=== PATIENT | female | born 1960 | race African-American/Black ===

== ENCOUNTER → 2020-08-03 13:08 | Outpatient (BNVA) | payer MEDICAID, SELFPAY | PROVIDERS: PCP Internal Medicine Geriatric Medicine; Referring Provider Internal Medicine Geriatric Medicine; Visit Provider Nurse Practitioner | DX: R10.32 Left lower quadrant pain (principal); R63.4 Abnormal weight loss; Z80.0 Family history of malignant neoplasm of digestive organs | CPT/HCPCS: 99212 ==

== ENCOUNTER 2020-08-27 09:44 | Outpatient (REF) | payer MEDICAID, SELFPAY ==
[2020-08-27 10:37] LABS: MANUAL DIFF FLAG NO
[2020-08-27 10:41] LABS: Basophils Percent Auto 0.2 % (0-2); Eosinophils Absolute Auto 0.1 X10*3/uL (0.0-0.4); Eosinophils Percent Auto 1.1 % (0-4); Hematocrit 36.3 % (37-47); Hemoglobin 11.5 g/dl (12.0-16.0); Imm Gran Abs Auto 0.03 X10*3/uL (0.00-0.03); Imm Gran Pct Auto 0.5 % (0.0-0.4); Lymphocytes Absolute Auto 1.9 X10*3/uL (1.2-4.9); Lymphocytes Percent Auto 34.3 % (20-40); Mean Corpuscular HGB Conc 31.7 g/dl (31.0-35.0); Mean Corpuscular Hemoglobin 25.8 pg (27.0-33.0); Mean Corpuscular Volume 81.4 fL (80-98); Mean Platelet Volume 10.1 fL (9.4-12.3); Monocytes Absolute Auto 0.4 X10*3/uL (0.1-1.2); Monocytes Percent Auto 7.9 % (2-11); Neutrophils Absolute Auto 3.1 X10*3/uL (2.0-8.3); Platelet Count 274 X10*3/uL (160-400); Red Blood Count 4.46 X10*6/uL (4.20-5.50); Red Cell Distribution Width 13.5 % (11.0-16.0); White Blood Count 5.6 X10*3/uL (4.8-10.8)
[2020-08-27 11:15] LABS: Alanine Aminotransferase 12 U/L (0-31); Albumin Level 4.3 g/dL (3.5-5.0); Alkaline Phosphatase 53 U/L (39-117); Anion Gap 10 (12-20); Aspartate Amino Transferase 15 U/L (5-31); Bilirubin Total 0.6 mg/dL (0.0-1.0); Blood Urea Nitrogen 13 mg/dL (9-16); Calcium 8.9 mg/dL (8.4-10.2); Carbon Dioxide 28 mmol/L (22-29); Chloride 105 mmol/L (96-108); Estimated Glomerular Filt Rate > 60; Glucose Random 84 mg/dL (60-115); Sodium 139 mmol/L (135-145); Total Protein 6.8 g/dL (6.5-8.0)
[2020-08-27 11:36] LABS: TSH reflex Free T4 1.41 mIU/mL (0.32-4.0)
== END 2020-08-27 09:45 | disposition home or self-care (01) ==
LOC: HO.LAB 09:44
PROVIDERS: PCP Internal Medicine Geriatric Medicine; Visit Provider Nurse Practitioner
DX: R10.32 Left lower quadrant pain (principal); R63.4 Abnormal weight loss
CPT/HCPCS: 36415; 80053; 84443; 85025

== ENCOUNTER 2020-08-29 | Outpatient (REF) | payer MEDICAID, SELFPAY | END 2020-08-29 00:01 | disposition home or self-care (01) | LOC: HO.LNP | PROVIDERS: Visit Provider Nurse Practitioner | DX: R10.32 Left lower quadrant pain (principal) | CPT/HCPCS: 87338 ==

== ENCOUNTER 2020-09-06 08:47 | Outpatient (REF) | payer MEDICAID, SELFPAY ==
--- NOTE | 2020-09-06 08:50 | CT_ITS ---
EXAMINATION: CT ABDOMEN AND PELVIS WITH CONTRAST CLINICAL INFORMATION: Left lower quadrant pain. COMPARISON: None TECHNIQUE: Multidetector volumetric images were obtained from the superior aspect of the liver through the pubic symphysis following administration of oral and 85 mL of Omnipaque 350 intravenous contrast. Sagittal and coronal reformatted images were obtained on the technologist's workstation. Oral contrast: No This CT examination was performed using dose optimization techniques as appropriate, variously including the following: *Automated exposure control *Adjustment of mA and/or kV according to patient size (this includes techniques or standardized protocols for targeted exams where dose is matched to indication/reason for exam; i.e. extremities or head) *Use of iterative reconstruction technique DLP: 331 mGy-cm FINDINGS: LUNG BASES: The visualized lung bases are unremarkable. LIVER, GALLBLADDER, AND BILIARY TREE: The liver is normal in size, shape, and attenuation. No focal hepatic lesion or biliary ductal dilatation is present. The gallbladder is unremarkable with no evidence of radiopaque gallstones, gallbladder wall thickening, or obvious pericholecystic inflammatory changes. PANCREAS: Unremarkable. SPLEEN: Unremarkable. ADRENAL GLANDS: Unremarkable. KIDNEYS AND URETERS: The kidneys are normal in size, shape, and attenuation. No hydronephrosis, hydroureter, or calculi seen. No perinephric stranding. BLADDER: Unremarkable. GASTROINTESTINAL TRACT: There is a large amount of stool seen throughout the colon without distention. Oral opacified small bowel loops are of normal caliber. Appendix is normal caliber. The stomach is nondistended and appears unremarkable. ABDOMINAL WALL: No significant hernia is appreciated. LYMPH NODES: Normal. VASCULAR: Abdominal aorta is of normal caliber. 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 Superior mesenteric and inferior mesenteric arteries are widely patent. There are solitary renal arteries which are patent bilaterally. PELVIC VISCERA: No free air or free fluid seen. OSSEOUS STRUCTURES: No lytic or sclerotic process. CT/CT abdomen pelvis w con IMPRESSION: Significant constipation without obstruction. Incidental finding of severe stenosis origin of celiac artery with poststenotic dilatation.
[2020-09-06] MEDS: Barium Sulfate Oral (Vanilla) 450 ML ORAL.SUSP 900 ML PO (11:17)
[2020-09-06] MEDS: iohexoL 350 MG/ML 100 ML INFUS..BTL 85 ML IV (11:17)
== END 2020-09-06 08:48 | disposition home or self-care (01) ==
LOC: HO.CT 08:47
PROVIDERS: PCP Internal Medicine Geriatric Medicine; Visit Provider Nurse Practitioner
DX: R10.32 Left lower quadrant pain (principal)
CPT/HCPCS: 74177; Q9967

== ENCOUNTER → 2020-11-22 14:42 | Outpatient (BNVA) | payer MEDICAID, SELFPAY | PROVIDERS: PCP Internal Medicine Geriatric Medicine; Visit Provider Nurse Practitioner ==

== ENCOUNTER → 2020-12-20 12:51 | Outpatient (BNVA) | payer MEDICAID, SELFPAY | PROVIDERS: PCP Internal Medicine Geriatric Medicine; Visit Provider Nurse Practitioner ==

== ENCOUNTER 2020-12-21 13:47 | Emergency (ER) | payer MEDICAID, SELFPAY ==
[2020-12-21 13:53] VITALS: BP 130/78; PULSE 74; RESP 18; TEMP 36.8; O2SAT 100; BMI 25.7
[2020-12-21 14:55] LABS: MANUAL DIFF FLAG NO; OBS Int Ctl Valid YES; OBS1 POSITIVE (NEGATIVE)
[2020-12-21 14:58] LABS: Basophils Percent Auto 0.5 % (0-2); Eosinophils Percent Auto 0.7 % (0-4); Hematocrit 40.3 % (37-47); Hemoglobin 12.6 g/dl (12.0-16.0); Imm Gran Abs Auto 0.01 X10*3/uL (0.00-0.03); Imm Gran Pct Auto 0.2 % (0.0-0.4); Lymphocytes Absolute Auto 1.9 X10*3/uL (1.2-4.9); Lymphocytes Percent Auto 32.3 % (20-40); Mean Corpuscular HGB Conc 31.3 g/dl (31.0-35.0); Mean Corpuscular Hemoglobin 25.7 pg (27.0-33.0); Mean Corpuscular Volume 82.1 fL (80-98); Mean Platelet Volume 10.2 fL (9.4-12.3); Monocytes Absolute Auto 0.4 X10*3/uL (0.1-1.2); Monocytes Percent Auto 6.6 % (2-11); Neutrophils Absolute Auto 3.5 X10*3/uL (2.0-8.3); Neutrophils Percent Auto 59.7 % (45-73); Platelet Count 283 X10*3/uL (160-400); Red Blood Count 4.91 X10*6/uL (4.20-5.50); Red Cell Distribution Width 12.6 % (11.0-16.0); White Blood Count 5.9 X10*3/uL (4.8-10.8)
--- NOTE | 2020-12-21 15:00 | ED.GIBLEED ---
HPI - GI Bleed General Chief complaint: GI Bleed Stated complaint: RECTAL BLEEDING Time Seen by Provider: 12/21/20 14:26 Source: patient Mode of arrival: ambulatory Limitations: no limitations History of Present Illness HPI Narrative: 60 y/o female with history of recent H. Pylori on current antibiotics, history of chronic LLQ pain x2 years, history of tubular adenoma on colonopscopy 2017, hemorrhoids and celiac artery stenosis presents to the ER with acute onset of rectal bleeding that started last night. She has had 4 bowel movements with bright red blood streaked in the stool. This morning she noted dripping of blood into the toilet after she moved her bowels which she has never had before. She denies rectal pain. No recent constipation. Her LLQ pain has been present for 2 years and is improved, only a 2/10. She denies nausea or vomiting. No diarrhea. She denies dizziness, lightheadedness, SOB or chest pain. MD complaint: blood on toilet paper and blood streaked stool Onset (ago): day(s) (1) Pain Consistency: constant Severity: mild Relieving factors: none Exacerbating factors: none Context: hemorrhoids Associated symptoms: abdominal pain Treatments Prior to Arrival: none Related Data Previous Rx's Medication Instructions Recorded dicyclomine 20 mg tablet 20 mg PO QID 30 Days #120 tab 08/03/20 sennosides 8.6 mg capsule 17.2 mg PO BEDTIME 30 Days #60 cap 11/22/20 hydrocortisone-pramoxine 1 appl FL QID #10 g 12/21/20 [Proctofoam HC] Allergies Allergy/AdvReac Type Severity Reaction Status Date / Time No Known Allergies Allergy Verified 12/21/20 13:53 Review of Systems Review of Systems: Constitutional: No Fever, No Chills Cardiovascular: No Chest Pain, No SOB Respiratory: No Cough, No Sputum Gastrointestinal: No Nausea, No Vomiting, No Diarrhea, + abdominal Pain, + Hematochezia, No Melena Genitourinary: No Dysuria, No Urinary Frequency, No Hematuria Musculoskeletal: No joint pain, No Myalgias Skin: No Skin Lesions, No rash Neuro: No Weakness, No Numbness, No Dizziness, No Headache Psych: No Anxiety/Panic, No Depression Heme/Lymph: No Bruising, No Lymphadenopathy Endocrine: No Polyuria, No Polydipsia PMFSH Past Medical History Attestation statement: The following information was validated with the patient. Surgical History History of hysterectomy (~2008) Hx of colonoscopy (~2017) Family History Family History Father HTN (hypertension) Mother No problems noted. Sister Cancer Maternal Aunt Diabetes Social History Social History (Updated 12/20/20 @ 12:55 by MARCELO Paz) Household Members: None Alcohol intake: current Alcohol intake frequency: does not drink Smoking Status: Never smoker Advance Directives: Yes Advance Directives Information Provided: Yes Advance Directives on File: No Physical Exam Vital Signs: Vital Signs: Last Vital Signs Temp 98.4 F 12/21/20 15:29 Pulse 66 12/21/20 15:29 Resp 14 12/21/20 15:29 BP 117/77 12/21/20 15:29 Pulse Ox 100 12/21/20 15:29 Body Mass Index 25.7 Appearance: Alert. Oriented X3. No acute distress. Eyes: Pupils equal, round and reactive to light. ENT: Pharynx normal. Neck: Normal inspection. Neck supple. CVS: Normal heart rate and rhythm. Pulses normal. Respiratory: No respiratory distress. Breath sounds normal. Abdomen: Soft and non-tender. longitudinal surgical scar consistent with prior +BS x4 Rectal: external hemorrhoids present, non-bleeding. slightly tender, normal rectal stone, no stool in rectal vault. Skin: Skin warm and dry. Normal skin color. Normal skin turgor. No rashes. Extremities: No lower extremity edema. Neuro: Oriented X 3. No motor deficit. No sensory deficit. Course Course Course Narrative: 60 y/o female presenting with BRBPR x4 since yesterday. No symptoms. Mild LLQ discomfort which is chronic. Exam is consistent with external hemorrhoids which is likely the cause of her bleeding. Will check labs and monitor in the ER for additional bleeding. Hold off on CT scan for now. Reevaluation(s) Reevaluation #1: H/H increased from her baseline with crit of 40.3. No bleeding here. Other labs are unremarkable. Will treat for hemorrhoids and have her follow up with GI. Encouraged to come back to the ER if bleeding worsens or if she develops symptoms of acute blood loss. She is stable for discharge and she agrees with plan. MDM - GI Bleed Lab Data Result diagrams: 12/21/20 14:48 12/21/20 14:48 Labs: Lab Results 12/21/20 12/21/20 12/21/20 Range/Units 14:48 14:48 14:48 WBC 5.9 (4.8-10.8) X10*3/uL RBC 4.91 (4.20-5.50) X10*6/uL Hgb 12.6 (12.0-16.0) g/dl Hct 40.3 (37-47) % MCV 82.1 (80-98) fL MCH 25.7 L (27.0-33.0) pg MCHC 31.3 (31.0-35.0) g/dl RDW 12.6 (11.0-16.0) % Plt Count 283 (160-400) X10*3/uL MPV 10.2 (9.4-12.3) fL Immature Gran % (Auto) 0.2 (0.0-0.4) % Neut % (Auto) 59.7 (45-73) % Lymph % (Auto) 32.3 (20-40) % [place] % (Auto) 6.6 (2-11) % Eos % (Auto) 0.7 (0-4) % Baso % (Auto) 0.5 (0-2) % Lymph # (Auto) 1.9 (1.2-4.9) X10*3/uL [place] # (Auto) 0.4 (0.1-1.2) X10*3/uL Eos # (Auto) 0.0 (0.0-0.4) X10*3/uL Baso # (Auto) 0.0 (0.0-0.2) X10*3/uL Abs Immat Gran (auto) 0.01 (0.00-0.03) X10*3/uL Absolute Neuts (auto) 3.5 (2.0-8.3) X10*3/uL Absolute Nucleated RBC 0.000 (0.0-0.012) X10*3/uL Nucleated RBC % (auto) 0.0 (0.0-0.2) /100WBC PT 12.9 (10.8-13.0) SEC INR 1.1 (0.9-1.1) APTT 33.3 (24.1-38.0) SEC Sodium 138 (135-145) mmol/L Potassium 4.3 (3.3-5.1) mmol/L Chloride 102 (96-108) mmol/L Carbon Dioxide 27 (22-29) mmol/L Anion Gap 13 (12-20) BUN 14 (9-16) mg/dL Creatinine 0.79 (0.5-1.4) mg/dL Estim Creat Clear Calc 71.7 Estimated GFR > 60 Random Glucose 77 (60-115) mg/dL Lactic Acid (0.5-2.0) mmol/L Calcium 9.3 (8.4-10.2) mg/dL Magnesium 2.3 (1.6-2.6) mg/dL Total Bilirubin 0.6 (0.0-1.0) mg/dL Direct Bilirubin 0.2 (0.0-0.5) mg/dL AST 18 (5-31) U/L ALT 16 (0-31) U/L Alkaline Phosphatase 60 (39-117) U/L Total Protein 7.4 (6.5-8.0) g/dL Albumin 4.5 (3.5-5.0) g/dL Stool Occult Blood (NEGATIVE) 12/21/20 12/21/20 Range/Units 14:48 14:48 WBC (4.8-10.8) X10*3/uL RBC (4.20-5.50) X10*6/uL Hgb (12.0-16.0) g/dl Hct (37-47) % MCV (80-98) fL MCH (27.0-33.0) pg MCHC (31.0-35.0) g/dl RDW (11.0-16.0) % Plt Count (160-400) X10*3/uL MPV (9.4-12.3) fL Immature Gran % (Auto) (0.0-0.4) % Neut % (Auto) (45-73) % Lymph % (Auto) (20-40) % [place] % (Auto) (2-11) % Eos % (Auto) (0-4) % Baso % (Auto) (0-2) % Lymph # (Auto) (1.2-4.9) X10*3/uL [place] # (Auto) (0.1-1.2) X10*3/uL Eos # (Auto) (0.0-0.4) X10*3/uL Baso # (Auto) (0.0-0.2) X10*3/uL Abs Immat Gran (auto) (0.00-0.03) X10*3/uL Absolute Neuts (auto) (2.0-8.3) X10*3/uL Absolute Nucleated RBC (0.0-0.012) X10*3/uL Nucleated RBC % (auto) (0.0-0.2) /100WBC PT (10.8-13.0) SEC INR (0.9-1.1) APTT (24.1-38.0) SEC Sodium (135-145) mmol/L Potassium (3.3-5.1) mmol/L Chloride (96-108) mmol/L Carbon Dioxide (22-29) mmol/L Anion Gap (12-20) BUN (9-16) mg/dL Creatinine (0.5-1.4) mg/dL Estim Creat Clear Calc Estimated GFR Random Glucose (60-115) mg/dL Lactic Acid 1.0 (0.5-2.0) mmol/L Calcium (8.4-10.2) mg/dL Magnesium (1.6-2.6) mg/dL Total Bilirubin (0.0-1.0) mg/dL Direct Bilirubin (0.0-0.5) mg/dL AST (5-31) U/L ALT (0-31) U/L Alkaline Phosphatase (39-117) U/L Total Protein (6.5-8.0) g/dL Albumin (3.5-5.0) g/dL Stool Occult Blood POSITIVE (NEGATIVE) Discharge Plan Discharge Clinical Impression: Hemorrhoids Qualifiers: Hemorrhoid type: unspecified Qualified Code(s): K64.9 - Unspecified hemorrhoids Patient Disposition: Home, Self-Care Instructions: Hemorrhoids (ED), Rectal Bleeding (ED) Additional Instructions: Your lab workup in the ER was normal. Your blood counts are stable and improved from prior. Your bleeding is likely due to the hemorrhoids seen on exam. Use the prescribed foam to help shrink and treat the hemorrhoids. Make sure you stay hydrated. Preventing constipation is important. Recommend Miralax and stool softeners daily. Increase your fiber intake. Follow up with GI doctor. If you have recurrent bleeding, worsening abdominal pain or develop symptoms of your bleeding (like chest pain, shortness of breath or dizziness) come back to the ER for further evaluation. Prescriptions: New Proctofoam HC 1-1 % foam 1 appl FL QID Qty: 10 RF: 0 No Action dicyclomine 20 mg tablet 20 mg PO QID 30 Days Qty: 120 RF: 3 senna 8.6 mg capsule 17.2 mg PO BEDTIME 30 Days Qty: 60 RF: 3 Referrals: Jerry Boss MD [Physician] - 2 days (rectal bleeding)
[2020-12-21 15:07] LABS: INTERNATIONAL NORM RATIO 1.1 (0.9-1.1); Prothrombin Time 12.9 SEC (10.8-13.0)
[2020-12-21 15:10] LABS: Partial Thromboplastin Time 33.3 SEC (24.1-38.0)
[2020-12-21 15:29] VITALS: BP 117/77; PULSE 66; RESP 14; TEMP 36.9; O2SAT 100
[2020-12-21 15:43] LABS: Alanine Aminotransferase 16 U/L (0-31); Albumin Level 4.5 g/dL (3.5-5.0); Alkaline Phosphatase 60 U/L (39-117); Anion Gap 13 (12-20); Aspartate Amino Transferase 18 U/L (5-31); Bilirubin Direct 0.2 mg/dL (0.0-0.5); Bilirubin Total 0.6 mg/dL (0.0-1.0); Blood Urea Nitrogen 14 mg/dL (9-16); Calcium 9.3 mg/dL (8.4-10.2); Carbon Dioxide 27 mmol/L (22-29); Chloride 102 mmol/L (96-108); Creatinine Clr Calc Pharmacy 71.7; Estimated Glomerular Filt Rate > 60; Glucose Random 77 mg/dL (60-115); Magnesium 2.3 mg/dL (1.6-2.6); Potassium 4.3 mmol/L (3.3-5.1); Sodium 138 mmol/L (135-145); Total Protein 7.4 g/dL (6.5-8.0)
== END 2020-12-21 17:20 | disposition home or self-care (01) ==
PROVIDERS: Physician Assistant; Emergency Provider Emergency Medicine; PCP Internal Medicine Geriatric Medicine
DX: K64.9 Unspecified hemorrhoids (principal); R10.32 Left lower quadrant pain; Z79.899 Other long term (current) drug therapy
CPT/HCPCS: 36415; 80048; 80076; 82272; 83605; 83735; 85025; 85610; 85730; 87040; 99283

== ENCOUNTER → 2021-01-19 13:13 | Outpatient (BNVA) | payer MEDICAID, SELFPAY | PROVIDERS: PCP Internal Medicine Geriatric Medicine; Visit Provider Nurse Practitioner ==

== ENCOUNTER 2021-01-20 21:00 | Outpatient (REF) | payer MEDICAID, SELFPAY | END 2021-01-20 21:01 | disposition home or self-care (01) | LOC: HO.LNP 21:00 | PROVIDERS: Visit Provider Nurse Practitioner | DX: A04.8 Other specified bacterial intestinal infections (principal) | CPT/HCPCS: 87338 ==

== ENCOUNTER 2023-11-07 10:40 | Outpatient (REF) | payer MEDICAID, SELFPAY ==
--- NOTE | ~2023-11-07 | XR_ITS ---
EXAMINATION: XR HAND, RIGHT CLINICAL INFORMATION: Flexor tenosynovitis of the right thumb COMPARISON: None available. TECHNIQUE: PA, lateral, and oblique views of the right hand. FINDINGS: The bones and soft tissues are normal. No fracture. Alignment is anatomic. Joint spaces are maintained. No erosions or soft tissue calcifications. XR/XR hand RT min 3V IMPRESSION: Normal right hand.
== END 2023-11-07 10:41 | disposition home or self-care (01) ==
LOC: HO.HHCX 10:40
PROVIDERS: Visit Provider Internal Medicine Geriatric Medicine
DX: M65.9 Synovitis and tenosynovitis, unspecified (principal)
CPT/HCPCS: 73130

== ENCOUNTER 2024-01-16 13:28 | Outpatient (AMB) | payer MEDICAID, SELFPAY ==
--- NOTE | 2024-01-16 14:05 | MHC.OFFVIS ---
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 States she was chopping some green beans and felt pain on her radial aspect of wrist at base of her CMC joint. States pain increases with pinching, gripping and grasping. Pain increases mainly at night time. Denies numbness, tingling or recent injury. 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 She currently states she has pain in her wrist which is aggravated at night and with pinching, gripping, and grasping activities. She denies any numbness or tingling and has not had any recent injury. [facility] Surgical History History of hysterectomy (~2007) Hx of colonoscopy (~2017) Family History Father HTN (hypertension) Mother No problems noted. 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 Review of Systems Const All systems reviewed & are unremarkable except as noted in HPI and below Physical Exam Vital Signs: BMI result Body Mass Index 25.8 Const General: cooperative, healthy appearing, comfortable, no acute distress, well developed and alert Orientation/consciousness: patient oriented x3 HEENT Head: Yes normal to inspection, Yes normocephalic and Yes atraumatic Eyes General: appearance normal, both eyes and all related structures Resp Effort & Inspection: normal respiratory effort and able to speak in complete sentences Cardio Rate: regular rate Peripheral pulses: Peripheral pulses 2+ throughout GI Palpation (GI): Soft to palpation Skin Lesions: no lesions Rashes: no rashes Neuro General: patient oriented x3 Extrem Other: Right wrist: Without deformity. No swelling. Mild tenderness over the radial styloid. Positive Ahsan?s. No pain with CMC grind. is able to make a full fist and fully extend all digits. NVI. Office Procedures Joint Injection/Drain Joint Injection/Drain Primary Site: right thumb (1st dorsal compartment ) Prep: site was prepped using aseptic technique, ethochloride spray was applied and injection warnings given Injected: 40 mg of, with 1 mL of, 1% plain lidocaine and decadron Procedure: The patient tolerated the procedure well and there was some relief with the local anesthesia Coding Details: tendon sheath Procedure code (CPT) selection complete Results Reviewed Results Reviewed: xrays of the right hand obtained on 11/07/23 are negative for acute or chronic abnormalities. Assessment & Plan Assessment & Plan (1) De Quervain's tenosynovitis, right: Code(s): M65.4 - Radial styloid tenosynovitis [de Quervain] Category: Medical Plan We discussed options today which include steroid injection. They did consent to move forward with the right wrist injection, which was tolerated well. I recommended rest, ice and elevation and OTC anti-inflammatories PRN for discomfort. If symptoms persist or worsens over the next 6-8 weeks, patient will contact the office, otherwise follow-up as needed. She was also given a thumb spica Velcro wrist splint to wear at night. Patient Instructions: Scribed for Naila Goodman PA-C, by Cedrick Matamoros medical assistant secretary, on 01/16/2024 at 2:00 PM EST. INaila PA-C, have personally reviewed and agree with the information entered by the scribe. Coding Level of Care Code New Pt Level 3 (51803) Diagnoses De Quervain's tenosynovitis, right M65.4
[2024-01-16 14:07] VITALS: BMI 25.8
== END 2024-01-16 15:19 | disposition home or self-care (01) ==
PROVIDERS: PCP Internal Medicine Geriatric Medicine; Visit Provider Physician Assistant
DX: M65.4 Radial styloid tenosynovitis [de Quervain] (principal)
CPT/HCPCS: 20550; 99203

== ENCOUNTER → 2024-01-16 13:28 | Outpatient (BNVA) | payer MEDICAID, SELFPAY | PROVIDERS: PCP Internal Medicine Geriatric Medicine; Visit Provider Orthopaedic Surgery | DX: M65.4 Radial styloid tenosynovitis [de Quervain] (principal) | CPT/HCPCS: 20550; 99212; J1100 ==

== ENCOUNTER 2024-02-20 10:18 | Outpatient (AMB) | payer MEDICAID, SELFPAY ==
[2024-02-20 10:25] VITALS: BP 139/83; PULSE 75; BMI 26.5
--- NOTE | 2024-02-20 10:25 | MHC.OFFVIS ---
Vital Signs 02/20/24 10:25 Height 5 ft 7 in Weight 169 lb 5.04 oz BMI 26.5 BP 139/83 Blood Pressure Location Rt brachial Position Sitting Pulse 75 Intake Visit Reasons: Abdominal pain Intake Note: Patient presents to in office visit today for abdominal pain. (last seen in clinic on 12/2020) CC: Patient c/o constipation, nausea sometimes, and heartburn. Patient states that she is here today because she is due for colonoscopy.. 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 pylori infection: Code(s): A04.8 - Other specified bacterial intestinal infections Category: Medical Plan - YASMANY Faulkner: SETSWANA #[id number], Lamberto. She still has 4 pills to take before competing her HP regimen. She has tolerated the medications well and has not needed to take the zofran. She says that her original pain is decreased, but she did have some mild rectal bleeding. She denies any C/D and has no rectal pain or discomfort. This may be r/t abx irritation. I offer her hemorrhoid cream as I think this is the most likely cause although we will need to consider Elsa as well but she declines at this time opting to just watch and wait. She is well aware that she has been call us if she needs this. I suggest that she complete her regimen and we will speak again in 3 weeks. I explain that we will test for eradication at that time. She is agreeable to this. . Medications: Discontinued: bismuth subsalicylate (Bismuth) Discontinued Reason: Patient Completed Course 2 tabs PO QID 14 days 112 tabs 0RF ondansetron HCl (Zofran) Discontinued Reason: Patient Completed Course 4 mg PO BID-TID 14 days PRN 60 tabs 0RF nausea and vomiting (2) Family history of colon cancer: Comment: Grandmother later in life Code(s): Z80.0 - Family history of malignant neoplasm of digestive organs Category: Medical (3) Weight loss, abnormal: Code(s): R63.4 - Abnormal weight loss Category: Medical (4) LLQ abdominal pain: Code(s): R10.32 - Left lower quadrant pain Category: Medical (5) Hemorrhoids: Code(s): K64.9 - Unspecified hemorrhoids Category: Medical Plan - YASMANY Faulkner: She declines hemorrhoid cream yet, will wait and see and knows to call if the RB worsens. al pmx ABNORMAL WEIGHT LOSS LEFT LOWER QUADRANT ABDOMINAL PAIN HEMORRHOIDS HISTORY OF H PYLORI INFECTION [place] [facility] [place] SURGICAL HISTORY Hysterectomy Colonoscopy - 2016 [facility]=polyps * ALLERGIES; NK[facility] MEDITECH LABS: No labs in our system since 2020 TODAY'S VISIT SETSWANA #Dago nichols PT HAS BEEN LOST TO FOLLOW UP SINCE 2020. She is presenting today for a new assessment of abdominal pain and she needs a colonoscopy. Her last scope was at [facility] in 2017 and she had polyps removed. She suffers CIC which she manages with coffee and she has incomplete evacuation. She has used senna and Dulcolax and miralax but it still has incomplete evacuation. She drinks a lot of liquids and her stool consistency varies. She has a lot of flatulence. She does not do well with whole grain wheats. She has occasional nausea no vomiting. There are no prior problems with anesthesia or sedation. No known ID problems. She has a hx of polyps. Trial of LInzess 145mcg and titrate. ROV 4 weeks. PFSH Surgical History History of hysterectomy (~2007) Hx of colonoscopy (~2016) Family History Father HTN (hypertension) Mother No problems noted. 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 Review of Systems Const Denies fatigue, Denies fever(s), Denies night sweats, Denies poor appetite and Denies weight loss ENT Reports Normal hearing present, Denies dental pain, Denies dysphagia, Denies hearing loss, Denies mouth pain, Denies odynophagia, Denies throat swelling, Denies tongue swelling and Reports other (Dentition adequate) Card Reports no additional complaints Resp Reports no additional complaints GI Details: Denies abdominal pain, Denies melena, Reports bloating, Denies hematochezia, Reports constipation, Reports GI cramping, Denies dysphagia, Denies excessive flatus, Denies early satiety, Reports heartburn, Denies diarrhea, Reports nausea, Denies odynophagia, Denies vomiting and Denies hematemesis Skin/Breast Denies pruritus, Denies lesions, Denies rash and Denies jaundice Neuro Reports Normal hearing present and Denies Abnormal speech present Endo Denies fatigue Aller/Immun Denies throat swelling and Denies tongue swelling Physical Exam Vital Signs: Last Vital Signs Pulse 75 02/20/24 10:25 BP 139/83 02/20/24 10:25 BMI result Body Mass Index 26.5 Const General: cooperative, no acute distress, well developed and well groomed Nutritional Appearance: average body habitus and well nourished Orientation/consciousness: oriented to person, oriented to place and oriented to time Limitations: language barrier HEENT Head: Yes normocephalic and Yes atraumatic Eyes General: appearance normal, both eyes and all related structures Pupils: Equal, round and reactive pupils present Neck Neck: Yes normal visual inspection and Yes no lymphadenopathy Thyroid: Thyroid normal Resp Effort & Inspection: normal respiratory effort and able to speak in complete sentences Auscultation: clear to auscultation bilaterally Cardio Rate: regular rate Rhythm: regular rhythm Heart sounds: Normal, physiologic split S2 sound present Peripheral pulses: radial pulses present and posterior tibial pulses present GI Inspection: No distended and No Abdominal panniculus present Palpation (GI): Soft to palpation, nontender, no guarding, not rigid and No hepatosplenomegaly present Percussion: Yes normal to percussion Auscultation: normal bowel sounds Rectal Exam - Female: deferred Abdomen image: 1. surgical scar Skin General skin exam: no rashes or lesions noted, turgor normal, skin not dry, no jaundice, No spider nevi and no striae Rashes: no rashes Nails: normal Neuro General: oriented to person, oriented to place and oriented to time Cranial nerves: Yes Equal, round and reactive pupils present and Yes Normal hearing present Speech: No Abnormal speech present Extrem General: Yes normal to inspection, No clubbing, No cyanosis and No edema Psych Appearance: grossly normal and well kempt Mental Status: mental status grossly normal Speech and movement: Normal speech and movement present Affect: normal affect Attitude: cooperative Thought process: Normal thought process present and not confabulating Thought content: Normal thought content present Insight: Limited insight present (Psych) Judgement: Limited judgement present (Psych) Assessment & Plan Assessment & Plan (1) Family history of colon cancer: Comment: Grandmother later in life Code(s): Z80.0 - Family history of malignant neoplasm of digestive organs Category: Medical (2) Chronic idiopathic constipation: Code(s): K59.04 - Chronic idiopathic constipation Category: Medical Plan SETSWANA #Dago live PT HAS BEEN LOST TO FOLLOW UP SINCE 2020. She is presenting today for a new assessment of abdominal pain and she needs a colonoscopy. Her last scope was at [facility] in 2017 and she had polyps removed. She suffers CIC which she manages with coffee and she has incomplete evacuation. She has used senna and Dulcolax and miralax but it still has incomplete evacuation. She drinks a lot of liquids and her stool consistency varies. She has a lot of flatulence. She does not do well with whole grain wheats. She has occasional nausea no vomiting. There are no prior problems with anesthesia or sedation. No known ID problems. She has a hx of polyps. Trial of LInzess 145mcg and titrate. ROV 4 weeks. Orders: Orders Colonoscopy - GI Use Only Today K59.04 - Chronic idiopathic constipation, Z80.0 - Family history of malignant neoplasm of digestive organs TSH reflex Free T4 Today K59.04 - Chronic idiopathic constipation, Z80.0 - Family history of malignant neoplasm of digestive organs Comprehensive Met. Panel Today K59.04 - Chronic idiopathic constipation, Z80.0 - Family history of malignant neoplasm of digestive organs Complete Blood Count Auto Diff Today K59.04 - Chronic idiopathic constipation, Z80.0 - Family history of malignant neoplasm of digestive organs Medications: New peg 3350-electrolytes 236-22.74-6.74 -5.86 gram (Golytely) until fecal effluent is clear; do not exceed a total volume of 2,000 mL 240 mL PO Q10M 4,000 mL 0RF 1 day Z12.11 - Encounter for screening for malignant neoplasm of colon bisacodyl (Dulcolax (bisacodyl)) 10 mg (2 x 5 mg) PO BEDTIME 4 tabs 0RF 2 days linaclotide (Linzess) Take first thing in the morning with a full glass of water. 145 mcg PO QAM 30 caps 3RF K58.1 - Irritable bowel syndrome with constipation Coding Level of Care Code New Pt Level 3 (03327) Diagnoses Family history of colon cancer Z80.0 Chronic idiopathic constipation K59.04
== END 2024-02-20 11:11 | disposition home or self-care (01) ==
LOC: HO.HGI 10:19
PROVIDERS: PCP Internal Medicine Geriatric Medicine; Visit Provider Nurse Practitioner
DX: Z80.0 Family history of malignant neoplasm of digestive organs (principal); K59.04 Chronic idiopathic constipation
CPT/HCPCS: 99203

== ENCOUNTER → 2024-02-20 10:18 | Outpatient (BNVA) | payer MEDICAID, SELFPAY | PROVIDERS: PCP Internal Medicine Geriatric Medicine; Visit Provider Nurse Practitioner | DX: K59.04 Chronic idiopathic constipation (principal); Z80.0 Family history of malignant neoplasm of digestive organs | CPT/HCPCS: 99212 ==

== ENCOUNTER 2024-03-19 11:46 | Outpatient (AMB) | payer MEDICAID, SELFPAY ==
[2024-03-19 11:52] VITALS: BP 119/78; PULSE 67; BMI 26.0
--- NOTE | 2024-03-19 11:52 | A.OFFVIS_ITS ---
Vital Signs 03/19/24 11:52 Height 5 ft 7 in Weight 166 lb 3.657 oz BMI 26.0 BP 119/78 Blood Pressure Location Lt brachial Position Sitting Pulse 67 Intake Visit Reasons: 4 week follow up Intake Note: Patient comes in office today in 4 weeks follow up of CIC. CC: Patient states that she has been taking the Linzess and is helping with constipation. Denies other GI symptoms. Senior Administrative Support Required: Yes Accompanied by: Self / Same As Patient Allergies No Known Allergies Allergy (Verified 03/19/24 12:01) HPI HPI 4 week follow up: Details: Assessment & Plan (1) Family history of colon cancer: Comment: Grandmother later in life Code(s): Z80.0 - Family history of malignant neoplasm of digestive organs Category: Medical (2) Chronic idiopathic constipation: Code(s): K59.04 - Chronic idiopathic constipation Category: Medical Plan SLOVAK #Dago live PT HAS BEEN LOST TO FOLLOW UP SINCE 2020. She is presenting today for a new assessment of abdominal pain and she needs a colonoscopy. Her last scope was at [facility] in 2017 and she had polyps removed. She suffers CIC which she manages with coffee and she has incomplete evacuation. She has used senna and Dulcolax and miralax but it still has incomplete evacuation. She drinks a lot of liquids and her stool consistency varies. She solis s a lot of flatulence. She does not do well with whole grain wheats. She has occasional nausea no vomiting. There are no prior problems with anesthesia or sedation. No known ID problems. She has a hx of polyps. Trial of LInzess 145mcg and titrate. ROV 4 weeks. Orders: Orders Colonoscopy - GI Use Only Today K59.04 - Chronic idiopathic constipation, Z80.0 - Family history of malignant neoplasm of digestive organs TSH reflex Free T4 Today K59.04 - Chronic idiopathic constipation, Z80.0 - Family history of malignant neoplasm of digestive organs Comprehensive Met. Panel Today K59.04 - Chronic idiopathic constipation, Z80.0 - Family history of malignant neoplasm of digestive organs Complete Blood Count Auto Diff Today K59.04 - Chronic idiopathic constipation, Z80.0 - Family history of malignant neoplasm of digestive organs Medications: New peg 3350-electrolytes 236-22.74-6.74 -5.86 gram (Golytely) until fecal effluent is clear; do not exceed a total volume of 2,000 mL 240 mL PO Q10M 4,000 mL 0RF 1 day Z12.11 - Encounter for screening for malignant neoplasm of colon bisacodyl (Dulcolax (bisacodyl)) 10 mg (2 x 5 mg) PO BEDTIME 4 tabs 0RF 2 days linaclotide (Linzess) Take first thing in the morning with a full glass of water. 145 mcg PO QAM 30 caps 3RF K58.1 - Irritable bowel syndrome with constipation LABS: not obtained. COLONOSCOPY BIOPSY CORRESPONDENCE . On 03/12/24 @ 09:45 Nesha Conrad Wrote To Nesha Conrad spoke with patient to schedule her screening colonoscopy, i offered her in june as this is our next available with any provider, she stated this is too far, ik tried to explain that she could call periodically to check on cancelations, she has decided not scheduled, she states she's going to [place] and will get it done out there. Nesha Conrad completed item. On 03/12/24 @ 07:54 Nesha Conrad Wrote To Nesha Conrad pt lvm to schedule. On 02/25/24 @ 08:35 Nesha Conrad Wrote To [facility] lvm, letter also mailed. On 02/22/24 @ 09:32 Nesha Conrad Wrote To [facility] Nesha Conrad completed item. On 02/20/24 @ 11:11 Aliyah Byrd Wrote To [facility] Ordering Provider: [B] Provider Performing Procedure: [] Medical Clearance: [] Procedure and CPT: [Hx TA] Anesthesia: [] Time Needed: [] Equipment: [] Order Medications: [] Medications to be Held Prior to Surgery (GLP1-Semaglutide, Dulaglutide, Liraglutide, Exenatide, Tirzepatide, Lixisenatide)(DPP4-Sitigliptin, Saxagliptin, Linagliptan, Alogliptan): [NO] TODAY'S VISIT SLOVAK #Marilia Live She received the LInzess and at 145mcg she feels this is helping her to move her bowels. She still has some feeling of incomplete evacuation, but she fears diarrhea as she works out on the streets. She still has a lot of gas. We will give a trial of Creon. She is trying to get a colonoscopy sooner at a different facility as she felt that July was too far out. Unfortunately, we morley not have any flexibility here at this time, so she can advise me if she can not get it and needs to be back in our scheduling queue. ROV 6 weeks. [facility] Surgical History History of hysterectomy (~2007) Hx of colonoscopy (~2016) Family History Father HTN (hypertension) Mother No problems noted. 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 Review of Systems Const Denies fatigue, Denies fever(s), Denies night sweats, Denies poor appetite and Denies weight loss ENT Reports Normal hearing present, Denies dental pain, Denies dysphagia, Denies hearing loss, Denies mouth pain, Denies odynophagia, Denies throat swelling, Denies tongue swelling and Reports other (Dentition adequate) Card Reports no additional complaints Resp Reports no additional complaints GI Details: Denies abdominal pain, Denies melena, Reports bloating, Denies hematochezia, Reports constipation, Denies GI cramping, Denies dysphagia, Denies excessive flatus, Denies early satiety, Denies heartburn, Denies diarrhea, Denies nausea, Denies odynophagia, Denies vomiting and Denies hematemesis Skin/Breast Denies pruritus, Denies lesions, Denies rash and Denies jaundice Neuro Reports Normal hearing present and Denies Abnormal speech present Endo Denies fatigue Aller/Immun Denies throat swelling and Denies tongue swelling Physical Exam Vital Signs: Last Vital Signs Pulse 67 03/19/24 11:52 BP 119/78 03/19/24 11:52 BMI result Body Mass Index 26.0 Const General: cooperative, no acute distress, well developed and well groomed Nutritional Appearance: average body habitus and well nourished Orientation/consciousness: oriented to person, oriented to place and oriented to time Limitations: language barrier HEENT Head: Yes normocephalic and Yes atraumatic Eyes General: appearance normal, both eyes and all related structures Pupils: Equal, round and reactive pupils present Neck Neck: Yes normal visual inspection and Yes no lymphadenopathy Thyroid: Thyroid normal Resp Effort & Inspection: normal respiratory effort and able to speak in complete sentences Auscultation: clear to auscultation bilaterally Cardio Rate: regular rate Rhythm: regular rhythm Heart sounds: Normal, physiologic split S2 sound present Peripheral pulses: radial pulses present and posterior tibial pulses present GI Inspection: No distended and No Abdominal panniculus present Palpation (GI): Soft to palpation, nontender, no guarding, not rigid and No hepatosplenomegaly present Percussion: Yes normal to percussion Auscultation: normal bowel sounds Rectal Exam - Female: deferred Skin General skin exam: no rashes or lesions noted, turgor normal, skin not dry, no jaundice, No spider nevi and no striae Rashes: no rashes Nails: normal Neuro General: oriented to person, oriented to place and oriented to time Cranial nerves: Yes Equal, round and reactive pupils present and Yes Normal hearing present Speech: No Abnormal speech present Extrem General: Yes normal to inspection, No clubbing, No cyanosis and No edema Psych Appearance: grossly normal and well kempt Mental Status: mental status grossly normal Speech and movement: Normal speech and movement present Affect: normal affect Attitude: cooperative Thought process: Normal thought process present and not confabulating Thought content: Normal thought content present Insight: Limited insight present (Psych) Judgement: Limited judgement present (Psych) Assessment & Plan Assessment & Plan (1) Chronic idiopathic constipation: Code(s): K59.04 - Chronic idiopathic constipation Category: Medical (2) LLQ abdominal pain: Code(s): R10.32 - Left lower quadrant pain Category: Medical Plan SLOVAK #Marilia Live She received the LInzess and at 145mcg she feels this is helping her to move her bowels. She still has some feeling of incomplete evacuation, but she fears diarrhea as she works out on the streets. She still has a lot of gas. We will give a trial of Creon. She is trying to get a colonoscopy sooner at a different facility as she felt that July was too far out. Unfortunately, we morley not have any flexibility here at this time, so she can advise me if she can not get it and needs to be back in our scheduling queue. ROV 6 weeks. Medications: New [id number] 24,000-76,000 -120,000 unit (Creon) 2 caps PO BID 120 caps 6RF 30 days K58.9 - Irritable bowel syndrome without diarrhea Refilled linaclotide (Linzess) Take first thing in the morning with a full glass of water. 145 mcg PO QAM 30 caps 6RF K58.1 - Irritable bowel syndrome with constipation Coding Level of Care Code Est Pt Level 3 (93732) Diagnoses Chronic idiopathic constipation K59.04 LLQ abdominal pain R10.32
== END 2024-03-19 12:21 | disposition home or self-care (01) ==
PROVIDERS: PCP Internal Medicine Geriatric Medicine; Visit Provider Nurse Practitioner
DX: K59.04 Chronic idiopathic constipation (principal); R10.32 Left lower quadrant pain
CPT/HCPCS: 99213

== ENCOUNTER → 2024-03-19 11:46 | Outpatient (BNVA) | payer MEDICAID, SELFPAY | PROVIDERS: PCP Internal Medicine Geriatric Medicine; Visit Provider Nurse Practitioner | DX: K59.04 Chronic idiopathic constipation (principal); K58.1 Irritable bowel syndrome with constipation; Z80.0 Family history of malignant neoplasm of digestive organs; Z79.899 Other long term (current) drug therapy | CPT/HCPCS: 99212 ==

== ENCOUNTER 2024-03-25 07:58 | Outpatient (REF) | payer MEDICAID, SELFPAY ==
[2024-03-25 08:18] LABS: MANUAL DIFF FLAG NO
[2024-03-25 09:01] LABS: Basophils Percent Auto 0.6 % (0-2); Eosinophils Absolute Auto 0.1 X10*3/uL (0.0-0.4); Hematocrit 40.4 % (37.0-47.0); Hemoglobin 13.2 g/dl (12.0-16.0); Imm Gran Abs Auto 0.02 X10*3/uL (0.00-0.03); Imm Gran Pct Auto 0.4 % (0.0-0.4); Lymphocytes Absolute Auto 1.7 X10*3/uL (1.2-4.9); Lymphocytes Percent Auto 32.8 % (20-40); Mean Corpuscular HGB Conc 32.7 g/dl (31.0-35.0); Mean Corpuscular Hemoglobin 26.3 pg (27.0-33.0); Mean Corpuscular Volume 80.6 fL (80.0-98.0); Mean Platelet Volume 9.9 fL (9.4-12.3); Monocytes Absolute Auto 0.3 X10*3/uL (0.1-1.2); Monocytes Percent Auto 5.9 % (2-11); Neutrophils Percent Auto 59.3 % (45-73); Platelet Count 298 X10*3/uL (160-400); Red Blood Count 5.01 X10*6/uL (4.20-5.50); White Blood Count 5.1 X10*3/uL (4.8-10.8)
[2024-03-25 09:24] LABS: Alanine Aminotransferase 19 U/L (0-31); Albumin Level 4.6 g/dL (3.5-5.0); Alkaline Phosphatase 57 U/L (39-117); Anion Gap 11 (12-20); Aspartate Amino Transferase 21 U/L (5-31); Bilirubin Total 0.6 mg/dL (0.0-1.0); Blood Urea Nitrogen 15 mg/dL (9-16); Calcium 10.3 mg/dL (8.4-10.2); Carbon Dioxide 29 mmol/L (22-29); Chloride 105 mmol/L (96-108); Cholesterol 247 mg/dL (<200); Estimated Glomerular Filt Rate > 60; Glucose Random 94 mg/dL (60-115); HDL Cholesterol 56 mg/dL (>40); LDL Cholesterol Calculated 164 mg/dL (<100); Potassium 4.4 mmol/L (3.3-5.1); Sodium 141 mmol/L (135-145); Total Protein 7.6 g/dL (6.5-8.0); Triglycerides 138 mg/dL (<150)
[2024-03-25 09:43] LABS: TSH reflex Free T4 1.33 uIU/mL (0.32-4.0)
[2024-03-25 09:43] LABS: HIV AB/AG Nonreactive (Nonreactive); HIV Num 1 0.05 S/CO (0.00-0.99); ~HepC Num1 0.08 S/CO (0.00-0.79); ~Hepatitis C Antibody Nonreactive (Nonreactive)
[2024-03-27 20:39] LABS: TS Negative Control Passed; TS Panel A 0; TS Panel B 0; TS Positive Control Passed; TSpotTB Negative (Negative)
== END 2024-03-25 07:59 | disposition home or self-care (01) ==
LOC: HO.LAB 07:58
PROVIDERS: Absent Provider Internal Medicine Geriatric Medicine; PCP Internal Medicine Geriatric Medicine; Visit Provider Nurse Practitioner
DX: Z00.00 Encounter for general adult medical examination without abnormal findings (principal); Z80.0 Family history of malignant neoplasm of digestive organs; K59.04 Chronic idiopathic constipation; Z11.1 Encounter for screening for respiratory tuberculosis; Z11.4 Encounter for screening for human immunodeficiency virus [HIV]; E78.2 Mixed hyperlipidemia; Z11.59 Encounter for screening for other viral diseases
CPT/HCPCS: 36415; 80053; 80061; 84443; 85025; 86481; 86803; 87389

== ENCOUNTER 2024-06-12 15:30 | Outpatient (AMB) | payer MEDICAID, SELFPAY ==
--- NOTE | 2024-06-12 15:43 | A.OFFVIS_ITS ---
Vital Signs 06/12/24 15:44 Height 5 ft 7 in Weight 163 lb 2.273 oz BMI 25.5 Intake Visit Reasons: Follow up [facility] Intake Note: Patient in office today in follow up of [facility]. CC: Patient reports that she has not started the Creon because she needs more information about the medication. Allergies No Known Allergies Allergy (Verified 06/12/24 15:49) HPI HPI Follow up [facility]: Details: Assessment & Plan (1) Chronic idiopathic constipation: Code(s): K59.04 - Chronic idiopathic constipation Category: Medical (2) LLQ abdominal pain: Code(s): R10.32 - Left lower quadrant pain Category: Medical Plan FRENCH #Marilia Live She received the LInzess and at 145mcg she feels this is helping her to move her bowels. She still has some feeling of incomplete evacuation, but she fears diarrhea as she works out on the streets. She still has a lot of gas. We will give a trial of Creon. She is trying to get a colonoscopy sooner at a different facility as she felt that July was too far out. Unfortunately, we morley not have any flexibility here at this time, so she can advise me if she can not get it and needs to be back in our scheduling queue. ROV 6 weeks. Medications: New [id number]-[id number]-[id number] 24,000-76,000 -120,000 unit (Creon) 2 caps PO BID 120 caps 6RF 30 days K58.9 - Irritable bowel syndrome without diarrhea Refilled linaclotide (Linzess) Take first thing in the morning with a full glass of water. 145 mcg PO QAM 30 caps 6RF K58.1 - Irritable bowel syndrome with constipation TODAY'S VISIT FRENCH #Tae She only just received the Creon and did not start it as she did not know how to take it - apparently, she waited 30 days! She also continues on her Linzess 145 micro g with good success. She will be traveling to the [facility] soon as her mother is soon. This may interfere with our follow ups but we will work around this. ROV 6 weeks. PFSH Surgical History History of hysterectomy (~2008) Hx of colonoscopy (~2017) Family History Father HTN (hypertension) Mother No problems noted. 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 Review of Systems Const Denies fatigue, Denies fever(s), Denies night sweats, Denies poor appetite and Denies weight loss ENT Reports Normal hearing present, Denies dental pain, Denies dysphagia, Denies hearing loss, Denies mouth pain, Denies odynophagia, Denies throat swelling, Denies tongue swelling and Reports other (Dentition adequate) Card Reports no additional complaints Resp Reports no additional complaints GI Details: Denies abdominal pain, Denies melena, Reports bloating, Denies hematochezia, Reports constipation, Reports GI cramping, Denies dysphagia, Denies excessive flatus, Denies early satiety, Denies heartburn, Denies diarrhea, Denies nausea, Denies odynophagia, Denies vomiting and Denies hematemesis Skin/Breast Denies pruritus, Denies lesions, Denies rash and Denies jaundice Neuro Reports Normal hearing present and Denies Abnormal speech present Endo Denies fatigue Aller/Immun Denies throat swelling and Denies tongue swelling Physical Exam Vital Signs: BMI result Body Mass Index 25.5 Const General: cooperative, no acute distress, well developed and well groomed Nutritional Appearance: average body habitus and well nourished Orientation/consciousness: oriented to person, oriented to place and oriented to time Limitations: language barrier HEENT Head: Yes normocephalic and Yes atraumatic Eyes General: appearance normal, both eyes and all related structures Pupils: Equal, round and reactive pupils present Neck Neck: Yes normal visual inspection and Yes no lymphadenopathy Thyroid: Thyroid normal Resp Effort & Inspection: normal respiratory effort and able to speak in complete sentences Auscultation: clear to auscultation bilaterally Cardio Rate: regular rate Rhythm: regular rhythm Heart sounds: Normal, physiologic split S2 sound present Peripheral pulses: radial pulses present and posterior tibial pulses present GI Inspection: No distended and No Abdominal panniculus present Palpation (GI): Soft to palpation, nontender, no guarding, not rigid and No hepatosplenomegaly present Percussion: Yes normal to percussion Auscultation: normal bowel sounds Rectal Exam - Female: deferred Skin General skin exam: no rashes or lesions noted, turgor normal, skin not dry, no jaundice, No spider nevi and no striae Rashes: no rashes Nails: normal Neuro General: oriented to person, oriented to place and oriented to time Cranial nerves: Yes Equal, round and reactive pupils present and Yes Normal hearing present Speech: No Abnormal speech present Extrem General: Yes normal to inspection, No clubbing, No cyanosis and No edema Psych Appearance: grossly normal and well kempt Mental Status: mental status grossly normal Speech and movement: Normal speech and movement present Affect: normal affect Attitude: cooperative Thought process: Normal thought process present and not confabulating Thought content: Normal thought content present Insight: Limited insight present (Psych) Judgement: Limited judgement present (Psych) Assessment & Plan Assessment & Plan (1) Chronic idiopathic constipation: Code(s): K59.04 - Chronic idiopathic constipation Category: Medical (2) IBS (irritable bowel syndrome): Code(s): K58.9 - Irritable bowel syndrome, unspecified Category: Medical Plan FRENCH #Dago and Caity She only just received the Creon and did not start it as she did not know how to take it - apparently, she waited 30 days! She also continues on her Linzess 145 micro g with good success. She will be traveling to the [facility] soon as her mother is soon. This may interfere with our follow ups but we will work around this. ROV 6 weeks. Coding Level of Care Code Est Pt Level 3 (61924) Diagnoses Chronic idiopathic constipation K59.04 IBS (irritable bowel syndrome) K58.9
[2024-06-12 15:44] VITALS: BMI 25.5
== END 2024-06-12 16:22 | disposition home or self-care (01) ==
PROVIDERS: PCP Internal Medicine Geriatric Medicine; Visit Provider Nurse Practitioner
DX: K59.04 Chronic idiopathic constipation (principal); K58.9 Irritable bowel syndrome, unspecified
CPT/HCPCS: 99213

== ENCOUNTER → 2024-06-12 15:30 | Outpatient (BNVA) | payer MEDICAID, SELFPAY | PROVIDERS: PCP Internal Medicine Geriatric Medicine; Visit Provider Nurse Practitioner | DX: K58.1 Irritable bowel syndrome with constipation (principal); K59.04 Chronic idiopathic constipation; R10.32 Left lower quadrant pain | CPT/HCPCS: 99212 ==